=== PATIENT | female | born 1940 | race Caucasian/White ===

== ENCOUNTER 2016-07-23 09:47 | Outpatient (CLI) | payer MEDICARE, OTHER | END 2016-07-23 23:59 | disposition home or self-care (01) | LOC: NM 09:47 | PROVIDERS: ATTEND Family Medicine | DX: E21.1 Secondary hyperparathyroidism, not elsewhere classified (principal) | CPT/HCPCS: 78070; A9500 ==

== ENCOUNTER 2016-10-13 11:31 | Inpatient (IN) | payer MEDICARE, OTHER ==
[~2016-10-13] VITALS: Ht 152.4 cm; Wt 61.2 kg
--- NOTE | 2016-10-13 11:43 | NUR ---
BB SELF FOR WEAKNESS SINCE WEDNESDAY. PLACED ON MONITOR. AWAITING MD ORDER
[2016-10-13 12:38] LABS: BASOPHILS # (AUTO) 0.1 /CMM (0.0-0.2); BASOPHILS % (AUTO) 0.7 % (0.0-2.0); EOSINOPHILS # (AUTO) 0.1 /CMM (0.0-0.7); EOSINOPHILS % (AUTO) 0.8 % (0.0-6.0); HEMATOCRIT 41 % (33-45); HEMOGLOBIN 13.6 g/dL (11.5-14.8); LYMPHOCYTES # (AUTO) 3.5 /CMM (0.8-4.8); LYMPHOCYTES % (AUTO) 44.6 % (20.0-44.0); MEAN CORPUSCULAR HEMOGLOBIN 28 PG (26.0-33.0); MEAN CORPUSCULAR HGB CONC 33 g/dl (31.0-36.0); MEAN CORPUSCULAR VOLUME 85 fL (82-100); MONOCYTES # (AUTO) 0.4 /CMM (0.1-1.30); MONOCYTES % (AUTO) 5.7 % (2.0-12.0); NEUTROPHILS # (AUTO) 3.7 /CMM (1.8-8.9); NEUTROPHILS % (AUTO) 48.2 % (43.0-81.0); PLATELET COUNT (AUTO) 187 /CMM (150-450); RDW COEFFICIENT OF VARIATION 13.5 (11.5-15.0); RED BLOOD CELL COUNT(AUTO) 4.82 MIL/uL (4.0-5.2); WHITE BLOOD COUNT (AUTO) 7.8 K/uL (4.3-11.0)
[2016-10-13 12:48] LABS: INR 1.09 (0.87-1.13); PROTHROMBIN TIME 11.3 SECS (9.5-12.7)
[2016-10-13 12:52] LABS: CALCIUM, SERUM 8.8 mg/dL (8.5-10.1); CARBON DIOXIDE 31 mmol/L (21-32); CHLORIDE 103 mmol/L (98-107); CREATININE 0.6 mg/dL (0.6-1.3); GLUCOSE 96 mg/dL (74-106); POTASSIUM 3.4 mmol/L (3.5-5.1); SODIUM SERUM 141 mmol/L (136-145); UREA NITROGEN, BLOOD 12 mg/dL (7-18)
[2016-10-13 13:00] LABS: TROPONIN I < 0.017 ng/mL (0.00-0.056)
[2016-10-13 13:05] LABS: ALANINE AMINOTRANSFERASE 30 U/L (12-78); ALBUMIN 3.6 g/dL (3.4-5.0); ALKALINE PHOSPHATASE 50 U/L (46-116); ASPARTATE AMINOTRANSFERASE 24 U/L (15-37); B-TYPE NATRIURETIC PEPTIDE 2200 PG/ML (0-125); BILIRUBIN,DIRECT 0.1 mg/dL (0.0-0.2); BILIRUBIN,TOTAL 0.4 mg/dL (0.2-1.0); TOTAL PROTEIN, SERUM 6.8 g/dL (6.4-8.2)
--- NOTE | 2016-10-13 13:15 | NUR ---
CALLED NURSING SUP. FOR TELE BED
--- NOTE | 2016-10-13 13:15 | NUR ---
MONO LEWIS, KAREEM CROWELL OVERAGE SHORTAGE AND DAMAGE CLERK
[2016-10-13] MEDS ORDERED: FUROSEMIDE 20 MG/2 ML VIAL ONE (13:24)
[2016-10-13] MEDS ORDERED: FUROSEMIDE 20 MG/2 ML VIAL IV ONE (13:30)
[2016-10-13] MEDS ORDERED: DABI75CA3 PO (14:00)
[2016-10-13] MEDS ORDERED: ONDANSETRON HCL/PF 4 MG/2 ML VIAL IVP PRN (14:00)
[2016-10-13] MEDS ORDERED: ACETAMINOPHEN 325 MG TABLET PO PRN (14:00)
[2016-10-13] MEDS ORDERED: ROSU20TA PO (14:00)
[2016-10-13] MEDS ORDERED: LOSA50TA21 PO (14:00)
[2016-10-13] MEDS ORDERED: MAG HYDROX/AL HYDROX/SIMETH 30 ML UDC PO PRN (14:00)
[2016-10-13] MEDS ORDERED: LEVO25TA9 PO (14:00)
[2016-10-13] MEDS ORDERED: MAGNESIUM HYDROXIDE 30 ML UDC PO PRN (14:00)
[2016-10-13] MEDS ORDERED: CHOL200026 PO (14:00)
[2016-10-13] MEDS ORDERED: ATEN50TA PO (14:00)
[2016-10-13] MEDS ORDERED: POTASSIUM CHLORIDE 20 MEQ POWDER PACKET PO ONE (14:00)
[2016-10-13] MEDS ORDERED: TEMAZEPAM 15 MG CAPSULE PO PRN (14:00)
--- NOTE | 2016-10-13 14:00 | NUR ---
REPORT GIVEN TO LATIA BERNAL
[2016-10-13] MEDS ORDERED: POTASSIUM CHLORIDE 20 MEQ TAB.PRT.SR PO ONE (14:01)
--- NOTE | 2016-10-13 14:01 | NUR ---
REPORT GIVEN TO DOLORES HAWKINS NEW ONSET CHF. TELEMETRY. ADMITTING MD SERNA AIRCRAFT MOTOR MECHANIC. TRANSFER VIA ACLS PROTOCOL
[2016-10-13 14:30] VITALS: BP 151/73
--- NOTE | 2016-10-13 15:00 | NUR ---
RN NOTES: PT RECEIVED FROM ER IN STABLE CONDITION, ALERT AWAKE OX3. RESPONSIVE TO VERBAL & TACTILE STIMULI. ON ROOM AIR. BREATHING PATTERN REGULAR & UNLABORED DURING INITIAL ASSESSMENT, PT STATES SHE FEEL VERY WEAK & SOB WHILE WALKS. PT IS ABLE TO MAKE NEEDS KNOWN. ON TELE MONITOR CONTROLLED A-FIB. VITAL SIGNS TAKEN & DOCUMENTED. IV SITE INTACT, SALINE LOCK. ABLE TO PROVIDE HISTORY. SAFETY MEASURES OBSERVED. UNIT/ROOM ORIENTATION PROVIDED. ALL NEEDS ATTENDED. CALL LIGHT WITHIN REACH. WILL CONTINUE TO MONITOR.
[2016-10-13] MEDS: CHOLECALCIFEROL 1,000 UNIT TABLET (VIT D3) PO SCH (15:46)
[2016-10-13 16:00] VITALS: BP 105/66
--- NOTE | 2016-10-13 16:14 | NUR ---
RN NOTES: PT SEEN BY KAREEM THOMPSON, DR. HALL & DR. OLIVAS AT BEDSIDE. RECEIVED NEW ORDERS NOTED & CARRIED OUT. WILL CONTINUE TO MONITOR.
[2016-10-13 17:10] LABS: THYROID STIMULATING HORMONE 1.867 uIU/mL (0.358-3.74)
[2016-10-13] MEDS: DABIGATRAN ETEXILATE MESYLATE 75 MG CAPSULE PO SCH (17:51)
[2016-10-13] MEDS: ATENOLOL 50 MG TABLET PO SCH (17:52)
--- NOTE | 2016-10-13 19:21 | NUR ---
RN NOTES: PT REMAINS STABLE DURING SHIFT. REPORT GIVEN TO NIGHT RN AT BEDSIDE TO CONTINUITY OF CARE .
--- NOTE | 2016-10-13 19:30 | NUR ---
LOG BRANDER INITIAL NOTES RECEIVED PATIENT AWAKE A/OX4, ABLE TO MAKE NEEDS KNOWN. DENIES PAIN OR DISCOMFORT. RESPIRATIONS EVEN AND UNLABORED. DENIES SOB. SKIN WARM AND DRY TO TOUCH. ON TELE MONITOR AFIB 76. WITH RAC 20G PATENT AND INTACT. HOB ELEVATED. SIDE RAILS UP AND LOCKED. BED KEPT AT LOWEST POSITION. CALL LIGHT KEPT WITHIN EASY REACH. WILL CONTINUE TO MONITOR.
[2016-10-13 20:00] VITALS: BP 104/63
--- NOTE | 2016-10-13 20:30 | NUR ---
HAND DRILLER NOTES PATIENT STATED SHE TAKES CRESTOR 20MG PO QHS, INFORMED KAREEM, WITH ORDERS TO D/C LIPITOR AND CONT HOME MED CRESTOR.
[2016-10-14] VITALS: BP 123/55
[2016-10-14 04:00] VITALS: BP 127/55
[2016-10-14 07:05] LABS: BASOPHILS % (AUTO) 0.2 % (0.0-2.0); EOSINOPHILS # (AUTO) 0.1 /CMM (0.0-0.7); EOSINOPHILS % (AUTO) 1.3 % (0.0-6.0); HEMATOCRIT 42 % (33-45); HEMOGLOBIN 14.1 g/dL (11.5-14.8); LYMPHOCYTES # (AUTO) 3.9 /CMM (0.8-4.8); LYMPHOCYTES % (AUTO) 51.2 % (20.0-44.0); MEAN CORPUSCULAR HEMOGLOBIN 29 PG (26.0-33.0); MEAN CORPUSCULAR HGB CONC 33 g/dl (31.0-36.0); MEAN CORPUSCULAR VOLUME 86 fL (82-100); MONOCYTES # (AUTO) 0.6 /CMM (0.1-1.30); MONOCYTES % (AUTO) 7.6 % (2.0-12.0); NEUTROPHILS % (AUTO) 39.7 % (43.0-81.0); PLATELET COUNT (AUTO) 199 /CMM (150-450); RDW COEFFICIENT OF VARIATION 14.8 (11.5-15.0); RED BLOOD CELL COUNT(AUTO) 4.91 MIL/uL (4.0-5.2); WHITE BLOOD COUNT (AUTO) 7.6 K/uL (4.3-11.0)
--- NOTE | 2016-10-14 07:08 | NUR ---
RN NOTES RECEIVED PATIENT ON BED, AWAKE A/OX4, RESPIRATION EVEN AND UNLABORED ,NO SOB NOTED , ON TELE A FIB IN 60'S , ABLE TO MAKE NEEDS KNOWN. RAC 20G IV SITE CDI, NPO AT THIS TIME FOR LEXISCAN STRESS TEST , HOB ELEVATED. SIDE RAILS UP x3, CALL LIGHT WITHIN EASY REACH , AND LOCKED. WILL CONTINUE TO MONITOR PT CLOSELY AND NOTIFY MD FOR ANY SIGNIFICANT CHANGES
--- NOTE | 2016-10-14 07:20 | NUR ---
INFORMATION ASSURANCE ENGINEER NOTES PER PATIENT MEDICATIONS WERE TAKE FROM HER WHEN SHE WAS ADMITTED AND GIVEN TO PHARMACY. INFORMED PHARMACY, THEY WILL LOOK FOR THE MEDICATION.
--- NOTE | 2016-10-14 07:22 | NUR ---
CHEMICAL MIXER CLOSING NOTES NO SIGNIFICANT CHANGES OVERNIGHT. INDEPENDENT WITH SELF CARE. DENIES SOB. ALL NEEDS ANTICIPATED AND MET. IV ACCESS PATENT. AFIB CONTROLLED ON MONITOR. NO C/O PAIN OR DISCOMFORT. HOB ELEVATED. SIDE RAILS UP LOCKED. BED KEPT AT LOWEST POSITION. CALL LIGHT KEPT WITHIN EASY REACH. PENDING LEXISCAN TODAY. CONTINUITY OF CARE ENDORSED TO AM NURSE.
[2016-10-14 08:00] VITALS: BP 109/61
[2016-10-14] MEDS ORDERED: REGADENOSON 0.4 MG/5 ML DISP.SYRIN IVP ONE (08:00)
[2016-10-14 08:10] LABS: ALANINE AMINOTRANSFERASE 34 U/L (12-78); ALBUMIN 3.5 g/dL (3.4-5.0); ALKALINE PHOSPHATASE 49 U/L (46-116); ASPARTATE AMINOTRANSFERASE 21 U/L (15-37); BILIRUBIN,TOTAL 0.6 mg/dL (0.2-1.0); CALCIUM, SERUM 9.2 mg/dL (8.5-10.1); CARBON DIOXIDE 30 mmol/L (21-32); CHLORIDE 105 mmol/L (98-107); CREATININE 0.7 mg/dL (0.6-1.3); GLUCOSE 98 mg/dL (74-106); MAGNESIUM 1.9 mg/dL (1.8-2.4); PHOSPHORUS 3.8 mg/dL (2.5-4.9); SODIUM SERUM 142 mmol/L (136-145); TOTAL PROTEIN, SERUM 6.8 g/dL (6.4-8.2); UREA NITROGEN, BLOOD 11 mg/dL (7-18)
[2016-10-14] MEDS: PANTOPRAZOLE 40 MG TABLET.DR PO SCH (08:22)
[2016-10-14] MEDS: LEVOTHYROXINE SODIUM 25 MCG TABLET PO SCH (08:24)
[2016-10-14 08:25] LABS: CHOLESTEROL 211 mg/dL (<200); HDL CHOLESTEROL 52 mg/dL (40-60); LDL 126 mg/dL (0-99); THYROID STIMULATING HORMONE 2.919 uIU/mL (0.358-3.74); TRIGLYCERIDES 116 mg/dL (30-150)
--- NOTE | 2016-10-14 08:36 | NUR ---
telemarketer note PT LEAVING UNIT FOR SCHEDULED STRESS TEST. AM PROTONIX AND SYNTHROID GIVEN VIA RN
[2016-10-14] MEDS ORDERED: CHOLECALCIFEROL 1,000 UNIT TABLET (VIT D3) PO SCH (09:00)
[2016-10-14] MEDS ORDERED: ATORVASTATIN 40 MG TABLET PO SCH (09:00)
[2016-10-14] MEDS: LOSARTAN POTASSIUM 50 MG TABLET PO SCH (09:52)
[2016-10-14] MEDS: CHOLECALCIFEROL 1,000 UNIT TABLET (VIT D3) PO SCH (09:53)
[2016-10-14] MEDS: ATENOLOL 50 MG TABLET PO SCH ×2 (09:54→17:00)
--- NOTE | 2016-10-14 10:00 | NUR ---
CHILD CARE WORKER NOTE PT AMBULATES WITHOUT DISTRESS WALKING O2 SATURATION 94- 95 % DR. HALL NOTIFIED NURSING STAFF WILL CONTINUE TO FOLLOW
[2016-10-14] MEDS: DABIGATRAN ETEXILATE MESYLATE 75 MG CAPSULE PO SCH ×2 (10:08→17:00)
--- NOTE | 2016-10-14 10:34 | NUR ---
MANAGER INTERFACE NOTE PT OFF THE UNIT TAKEN FOR IMAGING VIA [facility] STAFF WILL CONTINUE TO FOLLOW
[2016-10-14 12:20] LABS: IRON, SERUM 94 ug/dl (50-175); TOTAL IRON BINDING CAPACITY 314 ug/dl (250-450)
[2016-10-14] MEDS ORDERED: PEG 3350/NA SULF,BICARB,CL/KCL 4,000 ML BOTTLE PO ONE (14:00)
--- NOTE | 2016-10-14 14:14 | NUR ---
BOOKKEEPING MACHINE MECHANIC NOTE PT GIVEN GOLYTELY PO TO DRINK Q 15 MINS UNTIL COMPLETE. PT WILL BEGIN AT 1415. NURSING STAFF WILL CONTINUE TO MONITOR . NURSING STAFF STILL AWAITING A STOOL SAMPLE ADVISED PATIENT TO NOTIFY NURSING STAFF WHEN NEED TO VOID IS EXPERIENCED
[2016-10-14 16:00] VITALS: BP 97/64
--- NOTE | 2016-10-14 17:49 | NUR ---
FREIGHT TALLIER NOTE NURSE CONTACTED PHARMACY IN [place] TO Pradaxa medication not being in local floor pharmacy pharmacy advised nursing that they while send out the medication as soon as possible. nursing staff will continue to follow
--- NOTE | 2016-10-14 18:18 | NUR ---
BRIDGE BUILDER CLOSING NOTES NO SIGNIFICANT CHANGES THROUGHOUT THE DAY PT SCHEDULED FOR ARTERIAL DOPPLER PER DR. HALL, PT ALSO SCHEDULED FOR COLONOSCOPY IN THE MORNING 10/15/16. NURSING STAFF STILL AWAITING STOOL CULTURE VIA PATIENT. PT IS INDEPENDENT WITH SELF CARE. DENIES SOB. ALL NEEDS ANTICIPATED AND MET. IV ACCESS PATENT. AFIB CONTROLLED ON MONITOR. NO C/O PAIN OR DISCOMFORT. HOB ELEVATED. SIDE RAILS UP LOCKED. BED KEPT AT LOWEST POSITION. CALL LIGHT KEPT WITHIN EASY REACH. NO ACUTE ISSUE NOTE VIA LEXISCAN ON 10/14/16. CONTINUITY OF CARE ENDORSED TO PM NURSE.
--- NOTE | 2016-10-14 19:30 | NUR ---
Pt stable. OOB ad ashish. BM clearing out as expected after GoLytely. No distress noted. Denies pain. Appears comfortable. Call light in reach.
[2016-10-14 20:00] VITALS: BP 139/85
[2016-10-14] MEDS ORDERED: CRESTOR 20 MG PO SCH (22:00)
[2016-10-15 04:00] VITALS: BP 118/61
--- NOTE | 2016-10-15 05:31 | NUR ---
No changes noted. Remains stable. Kept NPO. All needs anticipated and met by staff. Call light in reach.
[2016-10-15 06:44] LABS: BASOPHILS % (AUTO) 0.2 % (0.0-2.0); EOSINOPHILS # (AUTO) 0.1 /CMM (0.0-0.7); EOSINOPHILS % (AUTO) 1.2 % (0.0-6.0); HEMATOCRIT 38 % (33-45); HEMOGLOBIN 12.9 g/dL (11.5-14.8); LYMPHOCYTES # (AUTO) 3.5 /CMM (0.8-4.8); LYMPHOCYTES % (AUTO) 46.4 % (20.0-44.0); MEAN CORPUSCULAR HEMOGLOBIN 29 PG (26.0-33.0); MEAN CORPUSCULAR HGB CONC 34 g/dl (31.0-36.0); MEAN CORPUSCULAR VOLUME 85 fL (82-100); MONOCYTES # (AUTO) 0.6 /CMM (0.1-1.30); MONOCYTES % (AUTO) 7.7 % (2.0-12.0); NEUTROPHILS # (AUTO) 3.3 /CMM (1.8-8.9); NEUTROPHILS % (AUTO) 44.5 % (43.0-81.0); PLATELET COUNT (AUTO) 183 /CMM (150-450); RDW COEFFICIENT OF VARIATION 14.1 (11.5-15.0); RED BLOOD CELL COUNT(AUTO) 4.45 MIL/uL (4.0-5.2); WHITE BLOOD COUNT (AUTO) 7.5 K/uL (4.3-11.0)
--- NOTE | 2016-10-15 07:15 | NUR ---
RN INITIAL NOTES: Rec'd pt awake on bed, not in any form of distress, denies pain/ discomfort, A/O x3-4. Pt on room air, no SOB. Pt is scheduled for colonoscopy at 1330H per Dr. Hercules, consent in, pre-op checklist done. Pt NPO since 2100H last night, reinforcement done re: NPO. As per pt, she passed clear liquid stool last night 9PM. Pt has RFA G20 SL, flushed, patent & intact w/ no signs of infection. Provided comfort & safety measures. Needs attended. Call light placed w/in reach. Will continue to monitor.
[2016-10-15] MEDS: LEVOTHYROXINE SODIUM 25 MCG TABLET PO SCH (07:30)
[2016-10-15] MEDS: PANTOPRAZOLE 40 MG TABLET.DR PO SCH (07:30)
[2016-10-15 08:00] VITALS: BP 129/64
[2016-10-15 08:27] VITALS: BP 129/64
[2016-10-15] MEDS: LOSARTAN POTASSIUM 50 MG TABLET PO SCH ×2 (08:48→15:09)
[2016-10-15] MEDS: ATENOLOL 50 MG TABLET PO SCH ×2 (08:48→17:00)
[2016-10-15] MEDS: DABIGATRAN ETEXILATE MESYLATE 75 MG CAPSULE PO SCH ×2 (08:48→18:19)
[2016-10-15] MEDS: CHOLECALCIFEROL 1,000 UNIT TABLET (VIT D3) PO SCH ×2 (08:48→15:08)
--- NOTE | 2016-10-15 10:00 | NUR ---
RN NOTES: As per pt, she passed small liquid stool.
--- NOTE | 2016-10-15 11:00 | NUR ---
RN NOTES: Rec'd call from Dina (OR) to call Dr. Hercules f/u on the time re: colonoscopy. Left VM to Dr. Hercules regarding this.
--- NOTE | 2016-10-15 13:10 | NUR ---
RN NOTES: Pt sent to OR for colonoscopy procedure via bed.
--- NOTE | 2016-10-15 14:00 | NUR ---
RN NOTES: Pt s/p colonoscopy procedure. As per OR nurse, as per MD order to start pt on regular diet.
--- NOTE | 2016-10-15 15:00 | NUR ---
RN NOTES: BP at 153/88. Anti hypertensive once daily med this AM was given.
[2016-10-15 16:00] VITALS: BP 102/51
[2016-10-15 16:54] VITALS: BP 102/55
[2016-10-15 17:00] VITALS: BP 103/44
--- NOTE | 2016-10-15 18:37 | NUR ---
GAS STATION OPERATOR NOTES: DC instructions and documents given to pt w/ pt verbalization of understanding. All belongings and own medication sent to pt. Belonging list signed by pt. IV line access removed, no sign of infection noted, applied pressure dressing. ID band also removed. No concern or issues at this time. Pt left the facility in stable condition via wheelchair accompanied by daughter and DOLORES Ware.
== END 2016-10-15 18:53 | disposition home or self-care (01) | DRG 880 ==
LOC: ER 11:33 → TELE1 14:13 → MEDSG1 10-14 12:04
PROVIDERS: ADMIT Nurse Practitioner Acute Care; ATTEND Nurse Practitioner Acute Care
PROC: 0DJD8ZZ Inspection of Lower Intestinal Tract, Via Natural or Artificial Opening Endoscopic (ICD-10-PCS; principal; 2016-10-15 13:00)
DX: F41.9 Anxiety disorder, unspecified (principal); D68.59 Other primary thrombophilia; R06.00 Dyspnea, unspecified; E03.9 Hypothyroidism, unspecified; E55.9 Vitamin D deficiency, unspecified; E78.5 Hyperlipidemia, unspecified; E87.6 Hypokalemia; Z80.0 Family history of malignant neoplasm of digestive organs; G47.33 Obstructive sleep apnea (adult) (pediatric); Z79.01 Long term (current) use of anticoagulants; I48.0 Paroxysmal atrial fibrillation; I10 Essential (primary) hypertension; R25.1 Tremor, unspecified; R53.1 Weakness
CPT/HCPCS: 36415; 71010-TC; 80048-TC; 80053-TC; 80061-TC; 80076-TC; 82272-TC; 82306; 83540-TC; 83735-TC; 83880; 84100-TC; 84439-TC; 84443-TC; 84484-TC; 85025-TC; 85378-TC; 85652-TC; 85730-TC; 87081-TC; 93307-TC; 93970-TC; 97001-TC; A4606; A9502; J1940; J2785; Z7610

== ENCOUNTER 2016-10-27 08:18 | Outpatient (CLI) | payer MEDICARE, OTHER ==
[~2016-10-27 08:18] MED LIST: ATEN50TA PO; CHOL200026 PO; DABI75CA3 PO; LEVO25TA9 PO; LOSA50TA21 PO; ROSU20TA PO
== END 2016-10-27 23:59 | disposition home or self-care (01) ==
LOC: MRI 08:18
PROVIDERS: ATTEND Family Medicine
DX: I67.82 Cerebral ischemia (principal); R90.82 White matter disease, unspecified; Q04.8 Other specified congenital malformations of brain; G93.9 Disorder of brain, unspecified; H93.12 Tinnitus, left ear
CPT/HCPCS: 70540; 70551-TC

== ENCOUNTER 2017-02-03 08:31 | Outpatient (CLI) | payer MEDICARE, OTHER | END 2017-02-03 23:59 | disposition home or self-care (01) | LOC: CT 08:31 | PROVIDERS: ATTEND Family Medicine | DX: N85.8 Other specified noninflammatory disorders of uterus (principal); I70.0 Atherosclerosis of aorta; I31.3 Pericardial effusion (noninflammatory); K76.89 Other specified diseases of liver | CPT/HCPCS: 74178; J7050; Q9967 ==

== ENCOUNTER 2017-08-31 10:39 | Outpatient (CLI) | payer MEDICARE, OTHER ==
[2017-08-31 11:46] LABS: INR 1.06 (0.87-1.13)
== END 2017-08-31 23:59 | disposition home or self-care (01) ==
LOC: LAB 10:39
PROVIDERS: ATTEND Family Medicine
DX: Z01.818 Encounter for other preprocedural examination (principal); J98.11 Atelectasis; I70.0 Atherosclerosis of aorta; D23.5 Other benign neoplasm of skin of trunk
CPT/HCPCS: 36415; 71046; 85610-TC; 85730-TC

== ENCOUNTER 2017-09-30 08:16 | Emergency (ER) | payer MEDICARE, OTHER ==
[~2017-09-30] VITALS: Ht 152.4 cm; Wt 61.2 kg
--- NOTE | 2017-09-30 08:16 | NUR ---
dizziness x 3 days, bp this morning was 211/86. PLACED ON MONITOR. AWAITING MD ORDER
--- NOTE | 2017-09-30 08:49 | NUR ---
SPARERIBS TRIMMER AT BEDSIDE
--- NOTE | 2017-09-30 08:51 | NUR ---
LAC#20 IV ACCESS. BLOOD SAMPLE COLLECTED SENT TO LAB
[2017-09-30 09:03] LABS: BASOPHILS % (AUTO) 0.2 % (0.0-2.0); EOSINOPHILS % (AUTO) 0.8 % (0.0-6.0); HEMATOCRIT 40 % (33-45); HEMOGLOBIN 13.5 g/dL (11.5-14.8); LYMPHOCYTES # (AUTO) 2.4 /CMM (0.8-4.8); LYMPHOCYTES % (AUTO) 38.1 % (20.0-44.0); MEAN CORPUSCULAR HGB CONC 34 g/dl (31.0-36.0); MEAN CORPUSCULAR VOLUME 85 fL (82-100); MONOCYTES # (AUTO) 0.5 /CMM (0.1-1.30); MONOCYTES % (AUTO) 7.8 % (2.0-12.0); NEUTROPHILS # (AUTO) 3.4 /CMM (1.8-8.9); NEUTROPHILS % (AUTO) 53.1 % (43.0-81.0); PLATELET COUNT (AUTO) 217 /CMM (150-450); RDW COEFFICIENT OF VARIATION 13.2 (11.5-15.0); RED BLOOD CELL COUNT(AUTO) 4.65 MIL/uL (4.0-5.2); WHITE BLOOD COUNT (AUTO) 6.4 K/uL (4.3-11.0)
[2017-09-30 09:07] LABS: CALCIUM, SERUM 9.6 mg/dL (8.5-10.1); CARBON DIOXIDE 32 mmol/L (21-32); CHLORIDE 102 mmol/L (98-107); CREATININE 0.7 mg/dL (0.6-1.3); GLUCOSE 109 mg/dL (74-106); POTASSIUM 4.3 mmol/L (3.5-5.1); SODIUM SERUM 137 mmol/L (136-145); UREA NITROGEN, BLOOD 10 mg/dL (7-18)
[2017-09-30 09:10] LABS: INR 1.01 (0.87-1.13)
[2017-09-30 09:16] LABS: TROPONIN I < 0.017 ng/mL (0.00-0.056)
[2017-09-30] MEDS ORDERED: LOSARTAN POTASSIUM 25 MG TABLET ONE (09:26)
[2017-09-30] MEDS ORDERED: LOSARTAN POTASSIUM 25 MG TABLET PO ONE (09:30)
[2017-09-30 10:36] VITALS: BP 128/62
--- NOTE | 2017-09-30 10:36 | NUR ---
Patient discharged to home in stable condition. Written and verbal after care instructions given. Patient verbalizes understanding of instruction.
--- NOTE | 2017-09-30 10:36 | NUR ---
IV removed. Catheter intact and site benign. Pressure and 4x4 applied to site. No bleeding noted.
== END 2017-09-30 10:37 | disposition home or self-care (01) ==
LOC: ER 08:20
DX: I10 Essential (primary) hypertension (principal); E78.5 Hyperlipidemia, unspecified; I48.91 Unspecified atrial fibrillation; Z79.01 Long term (current) use of anticoagulants; Z88.0 Allergy status to penicillin; Z88.2 Allergy status to sulfonamides; Z85.43 Personal history of malignant neoplasm of ovary; Z60.2 Problems related to living alone
CPT/HCPCS: 36415; 71045-TC; 80048-TC; 84484-TC; 85025-TC; 85730-TC; A4606; Z7610

== ENCOUNTER 2017-10-13 13:39 | Outpatient (CLI) | payer MEDICARE, OTHER | END 2017-10-13 23:59 | disposition home or self-care (01) | LOC: RAD 13:39 | PROVIDERS: ATTEND Family Medicine | DX: R42 Dizziness and giddiness (principal) | CPT/HCPCS: 70450-TC ==

== ENCOUNTER 2018-04-12 11:16 | Emergency (ER) | payer MEDICARE, OTHER ==
[~2018-04-12] VITALS: Ht 154.9 cm; Wt 63.0 kg
[~2018-04-12 11:16] MED LIST changes: -LOSA50TA21 PO; +LOSA50TA39 PO
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
[2018-04-12] MEDS ORDERED: ACETAMINOPHEN ES 500 MG TABLET ONE (11:57)
[2018-04-12] MEDS ORDERED: ACETAMINOPHEN ES 500 MG TABLET PO ONE (12:00)
[2018-04-12] MEDS ORDERED: IV NS 0.9% 1,000 ML BAG IV ONE (12:00)
[2018-04-12 12:01] LABS: BASOPHILS % (AUTO) 0.4 % (0.0-2.0); EOSINOPHILS % (AUTO) 0.5 % (0.0-6.0); HEMATOCRIT 42 % (33-45); HEMOGLOBIN 13.8 g/dL (11.5-14.8); LYMPHOCYTES # (AUTO) 4.3 /CMM (0.8-4.8); LYMPHOCYTES % (AUTO) 32.6 % (20.0-44.0); MEAN CORPUSCULAR HGB CONC 33 g/dl (31.0-36.0); MEAN CORPUSCULAR VOLUME 87 fL (82-100); MONOCYTES # (AUTO) 0.6 /CMM (0.1-1.30); MONOCYTES % (AUTO) 4.9 % (2.0-12.0); NEUTROPHILS # (AUTO) 8.2 /CMM (1.8-8.9); NEUTROPHILS % (AUTO) 61.6 % (43.0-81.0); PLATELET COUNT (AUTO) 206 /CMM (150-450); RED BLOOD CELL COUNT(AUTO) 4.81 MIL/uL (4.0-5.2); WHITE BLOOD COUNT (AUTO) 13.3 K/uL (4.3-11.0)
[2018-04-12 12:14] LABS: CALCIUM, SERUM 9.3 mg/dL (8.5-10.1); CARBON DIOXIDE 27 mmol/L (21-32); CHLORIDE 101 mmol/L (98-107); CREATININE 0.8 mg/dL (0.6-1.3); GLUCOSE 141 mg/dL (74-106); POTASSIUM 3.2 mmol/L (3.5-5.1); SODIUM SERUM 140 mmol/L (136-145); UREA NITROGEN, BLOOD 17 mg/dL (7-18)
[2018-04-12 12:19] LABS: ALANINE AMINOTRANSFERASE 61 U/L (12-78); ALBUMIN 3.5 g/dL (3.4-5.0); ALKALINE PHOSPHATASE 63 U/L (46-116); ASPARTATE AMINOTRANSFERASE 62 U/L (15-37); BILIRUBIN,DIRECT 0.1 mg/dL (0.0-0.2); BILIRUBIN,TOTAL 0.4 mg/dL (0.2-1.0); TOTAL PROTEIN, SERUM 6.7 g/dL (6.4-8.2)
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
[2018-04-12] MEDS ORDERED: IOHEXOL-300 100 ML VIAL IV ONE (12:47)
[2018-04-12] MEDS ORDERED: CT SWABBABLE VALVE TRANS SET 1 EA INFUS.SET MC ONE (12:47)
[2018-04-12] MEDS ORDERED: IV NS 0.9% 250 ML IV ONE (12:47)
--- NOTE | 2018-04-12 13:11 | NUR ---
PT IN RADIOLOGY. FAMILY REMAINS AT BEDSIDE.
--- NOTE | 2018-04-12 14:16 | NUR ---
FIRST LITER IVF FINISHED. SECOND LITER PLACED AND RUNNING AT [facility].
[2018-04-12 14:28] VITALS: BP 104/73
[2018-04-12] MEDS ORDERED: PROTHROMBIN COMPLEX CONCENTR 500 UNIT VIAL IV ONE (14:30)
--- NOTE | 2018-04-12 14:35 | NUR ---
PT TRANSFERRED TO [facility] FOR TRAUMA.
== END 2018-04-12 14:38 | disposition short-term general hospital (02) ==
LOC: ER 11:19
DX: S36.892A Contusion of other intra-abdominal organs, initial encounter (principal); S60.211A Contusion of right wrist, initial encounter; S00.81XA Abrasion of other part of head, initial encounter; I48.91 Unspecified atrial fibrillation; I10 Essential (primary) hypertension; E78.5 Hyperlipidemia, unspecified; Z98.890 Other specified postprocedural states; Z88.0 Allergy status to penicillin; Z88.2 Allergy status to sulfonamides; Z60.2 Problems related to living alone; Z79.899 Other long term (current) drug therapy; V49.49XA Driver injured in collision with other motor vehicles in traffic accident, initial encounter; Y93.89 Activity, other specified; Y92.413 State road as the place of occurrence of the external cause; Y99.8 Other external cause status
CPT/HCPCS: 36415; 70450-TC; 71260-TC; 72125-TC; 73110; 73564-TC; 80048-TC; 80076-TC; 84484-TC; 85025-TC; 85730-TC; A4606; C9132; J7030; J7050; Q9967; Z7610

== ENCOUNTER 2018-07-08 04:07 | Inpatient (IN) | payer MEDICARE, OTHER ==
[~2018-07-08] VITALS: Ht 152.4 cm; Wt 59.0 kg
[~2018-07-08 04:07] MED LIST changes: -ROSU20TA PO; +ROSU20TA2 PO
--- NOTE | 2018-07-08 04:15 | NUR ---
Pt came to emergency dept. complaining of palpitations that started last night at 1030pm. Pt states that they went away and came back and that is why she came to the emergency dept. Pt is AXO4. Respirations even and unlabored. Pt put on the monitor and pulse ox. Pending eval from ER .
--- NOTE | 2018-07-08 04:25 | NUR ---
EKG at bedside.
--- NOTE | 2018-07-08 04:30 | NUR ---
JAIME MIGUEL AT bedside.
[2018-07-08 04:52] LABS: BASOPHILS % (AUTO) 0.5 % (0.0-2.0); EOSINOPHILS % (AUTO) 0.7 % (0.0-6.0); HEMATOCRIT 43 % (33-45); HEMOGLOBIN 14.7 g/dL (11.5-14.8); LYMPHOCYTES # (AUTO) 2.9 /CMM (0.8-4.8); LYMPHOCYTES % (AUTO) 44.5 % (20.0-44.0); MEAN CORPUSCULAR HGB CONC 34 g/dl (31.0-36.0); MEAN CORPUSCULAR VOLUME 88 fL (82-100); MONOCYTES # (AUTO) 0.4 /CMM (0.1-1.30); MONOCYTES % (AUTO) 6.5 % (2.0-12.0); NEUTROPHILS # (AUTO) 3.2 /CMM (1.8-8.9); NEUTROPHILS % (AUTO) 47.8 % (43.0-81.0); PLATELET COUNT (AUTO) 191 /CMM (150-450); RED BLOOD CELL COUNT(AUTO) 4.93 MIL/uL (4.0-5.2); WHITE BLOOD COUNT (AUTO) 6.6 K/uL (4.3-11.0)
--- NOTE | 2018-07-08 04:53 | NUR ---
Xray at bedside.
[2018-07-08 05:00] LABS: CALCIUM, SERUM 9.4 mg/dL (8.5-10.1); CARBON DIOXIDE 31 mmol/L (21-32); CHLORIDE 106 mmol/L (98-107); CREATININE 0.7 mg/dL (0.6-1.3); GLUCOSE 110 mg/dL (74-106); POTASSIUM 3.8 mmol/L (3.5-5.1); SODIUM SERUM 144 mmol/L (136-145); UREA NITROGEN, BLOOD 13 mg/dL (7-18)
--- NOTE | 2018-07-08 05:38 | NUR ---
Report given to Khoi June RN for HAYES.
[2018-07-08] MEDS ORDERED: DABI150C PO (05:52)
[2018-07-08] MEDS ORDERED: LEVO25TA7 PO (05:52)
[2018-07-08] MEDS ORDERED: LOSA1TAB36 PO (05:52)
[2018-07-08] MEDS ORDERED: EZET10TA14 PO (05:52)
[2018-07-08] MEDS ORDERED: ATEN50TA PO (05:52)
[2018-07-08] MEDS ORDERED: ROSU20TA2 PO (05:52)
[2018-07-08] MEDS ORDERED: ACETAMINOPHEN 325 MG TABLET PO PRN (06:00)
[2018-07-08] MEDS ORDERED: ONDANSETRON HCL/PF 4 MG/2 ML VIAL IVP PRN (06:00)
[2018-07-08] MEDS ORDERED: MORPHINE SULFATE INJ 2 MG/ML DISP.SYRIN IV PRN (06:00)
[2018-07-08] MEDS ORDERED: MAGNESIUM HYDROXIDE 30 ML UDC PO PRN (06:00)
[2018-07-08] MEDS ORDERED: TEMAZEPAM 7.5 MG CAPSULE PO PRN (06:00)
[2018-07-08] MEDS ORDERED: MAG HYDROX/AL HYDROX/SIMETH 30 ML UDC PO PRN (06:00)
--- NOTE | 2018-07-08 06:05 | NUR ---
RN Notes Admitted patient from ER via gurney, awake, alert and oriented x4. Patient denies pain, nausea and vomiting. Kept patient on NPO until seen by cardio. Vital signs stable. Attached to telemonitor which reads NSR with heart rate at 66. Plan of care and fall precaution discussed with the patient and verbalized understanding. Skin assessment done, skin clear and intact. Kept comfortable and attended. Will endorse to morning RN to complete admission and for continuity of care.
[2018-07-08 06:30] VITALS: BP 155/75
--- NOTE | 2018-07-08 07:15 | NUR ---
TELE/RN NOTE THE PATIENT IS RECEIVED IN BED AWAKE. ALERT AND ORIENTED X4. PATIENT STATED THAT SHE IS HARD OF HEARING ON LEFT EAR. THE PATIENT IS ON EXTERNAL TELE BOX AND THE READING IS SR 60. DENIES PAIN. IN ROOM AIR AND DENIES SOB. RESPIRATION REGULAR AND UNLABORED. THE PATIENT IN NO APPARENT DISTRESS. RAC G 20 PATENT AND SALINE LOCKED. BED LOW AND LOCKED. SIDE RAILS UP X2. CALL LIGHT WITHIN REACH. WILL CONTINUE TO MONITOR.
[2018-07-08 07:30] VITALS: BP 128/72
[2018-07-08] MEDS: PANTOPRAZOLE 40 MG TABLET.DR PO SCH (07:30)
[2018-07-08 08:00] VITALS: BP 128/72
[2018-07-08] MEDS ORDERED: LOSARTAN/HCTZ 50-12.5MG/ 1 EA TABLET PO SCH (09:00)
[2018-07-08] MEDS: LOSARTAN/HCTZ 50-12.5MG/ 1 EA TABLET PO SCH (09:00)
[2018-07-08] MEDS: LEVOTHYROXINE SODIUM 25 MCG TABLET PO SCH (09:06)
[2018-07-08 09:49] LABS: THYROID STIMULATING HORMONE 2.237 uIU/mL (0.358-3.74)
[2018-07-08] MEDS: ATENOLOL 50 MG TABLET PO SCH ×2 (10:30→21:03)
[2018-07-08] MEDS: DABIGATRAN ETEXILATE MESYLATE 75 MG CAPSULE PO SCH ×2 (11:30→16:47)
--- NOTE | 2018-07-08 13:01 | NUR ---
MS/RN NOTE STILL WAITING FOR PRADAXA TO BE DELIVERED FROM PHARMACY. FOLLOW UP CALL WAS MADE. WILL CONTINUE TO FOLLOW UP.
[2018-07-08 16:00] VITALS: BP 130/71
--- NOTE | 2018-07-08 16:27 | NUR ---
MS/RN NOTE PARDAXA DUE AT 1130 NOT ADMINISTERED DUE TO PHARMACY LATE DELIVERY.
--- NOTE | 2018-07-08 18:04 | NUR ---
MS/RN NOTE THE PATIENT ALERT AND ORIENTED X4. IN ROOM AIR AND SATURATION IS AT 97%. DENIES SOB. DENIES PAIN. THE PATIENT IN NO APPARENT DISTRESS. RAC G 20 PATENT AND SALINE LOCKED. THE PATIENT IS ABLE TO AMBULATE WITH STAND BY ASSIST. GOOD AND GENTLE SKIN CARE RENDERED. KEPT CLEAN, DRY AND COMFORTABLE. ALL NEEDS ATTENDED AND ANTICIPATED. BED LOW AND LOCKED. SIDE RAILS UP X2. CALL LIGHT WITHIN REACH. WILL ENDORSE TO WATCH DIAL MAKER.
--- NOTE | 2018-07-08 19:15 | NUR ---
MS RN NOTE RECEIVED PT IN STABLE CONDITION A&O X4, CURRENTLY RESTING IN BED EASILY AROUSED WHEN NAME IS CALLED. NO SIGNS OF SOB/DISTRESS. NO C/O PAIN. ALL CURRENT NEEDS MET. SAFETY MEASURES IN PLACE: BED LOW, LOCKED, UPPER RAILS UP, AND CALL LIGHT WITHIN REACH. WILL CONT TO MONITOR.
[2018-07-08 20:00] VITALS: BP 121/70
[2018-07-08] MEDS ORDERED: EZETIMIBE 10 MG TABLET PO SCH (22:00)
--- NOTE | 2018-07-09 06:27 | NUR ---
MS RN NOTE PT IN STABLE CONDITION A&O X4, CURRENTLY RESTING IN BED EASILY AROUSED WHEN NAME IS CALLED. NO SIGNS OF SOB/DISTRESS. NO C/O PAIN. ALL CURRENT NEEDS MET. SAFETY MEASURES IN PLACE: BED LOW, LOCKED, UPPER RAILS UP, AND CALL LIGHT WITHIN REACH. WILL CONT TO MONITOR AND ENDORSE TO NEXT SHIFT FOR HAYES.
[2018-07-09 06:28] LABS: BASOPHILS % (AUTO) 0.4 % (0.0-2.0); CARBON DIOXIDE 30 mmol/L (21-32); CHLORIDE 107 mmol/L (98-107); CREATININE 0.6 mg/dL (0.6-1.3); GLUCOSE 92 mg/dL (74-106); HEMATOCRIT 41 % (33-45); HEMOGLOBIN 14.2 g/dL (11.5-14.8); LYMPHOCYTES # (AUTO) 2.8 /CMM (0.8-4.8); LYMPHOCYTES % (AUTO) 48.8 % (20.0-44.0); MAGNESIUM 2.3 mg/dL (1.8-2.4); MEAN CORPUSCULAR HGB CONC 35 g/dl (31.0-36.0); MEAN CORPUSCULAR VOLUME 87 fL (82-100); MONOCYTES # (AUTO) 0.4 /CMM (0.1-1.30); MONOCYTES % (AUTO) 6.5 % (2.0-12.0); NEUTROPHILS # (AUTO) 2.5 /CMM (1.8-8.9); NEUTROPHILS % (AUTO) 43.3 % (43.0-81.0); PHOSPHORUS 4.4 mg/dL (2.5-4.9); PLATELET COUNT (AUTO) 184 /CMM (150-450); POTASSIUM 4.1 mmol/L (3.5-5.1); SODIUM SERUM 145 mmol/L (136-145); UREA NITROGEN, BLOOD 13 mg/dL (7-18); WHITE BLOOD COUNT (AUTO) 5.8 K/uL (4.3-11.0)
[2018-07-09] MEDS: PANTOPRAZOLE 40 MG TABLET.DR PO SCH (07:30)
--- NOTE | 2018-07-09 07:32 | NUR ---
MS RN OPENING NOTES PATIENT IS A/OX4, IN NO APPARENT DISTRESS. BED RAILS UP X2. BED IS LOCKED AND LOWERED. CALL LIGHT WITHIN REACH. IV INTACT AND PATENT. WILL CONTINUE TO MONITOR.
[2018-07-09] MEDS: LEVOTHYROXINE SODIUM 25 MCG TABLET PO SCH (07:40)
[2018-07-09 08:00] VITALS: BP 137/72
[2018-07-09 08:26] LABS: CHOLESTEROL 182 mg/dL (<200); HDL CHOLESTEROL 54 mg/dL (40-60); LDL 104 mg/dL (0-99); TRIGLYCERIDES 80 mg/dL (30-150)
[2018-07-09] MEDS: ATENOLOL 50 MG TABLET PO SCH (08:42)
[2018-07-09 09:00] VITALS: BP 137/72
[2018-07-09] MEDS ORDERED: ATORVASTATIN 40 MG TABLET PO SCH (09:00)
[2018-07-09] MEDS: LOSARTAN/HCTZ 50-12.5MG/ 1 EA TABLET PO SCH (09:00)
[2018-07-09] MEDS: DABIGATRAN ETEXILATE MESYLATE 75 MG CAPSULE PO SCH (09:21)
[2018-07-09] MEDS ORDERED: ATOR40TA PO (09:26)
[2018-07-09] MEDS ORDERED: LOSA1TAB3 PO (09:26)
--- NOTE | 2018-07-09 09:40 | NUR ---
MS SMALL OFFSET PRINTER NOTES DISCHARGED PATIENT IN STABLE CONDITION. IN NO APPARENT DISTRESS. EXITCARE WAS SIGNED AND GIVEN TO THE PATIENT. PRESCRIPTIONS WERE GIVEN TO THE PATIENT. FOLLOW UP APPOINTMENT WITH DR OLIVAS WAS PROVIDED TO THE PATIENT FOR 1 WEEK POST DISCHARGE. IV LINE AND ID BAND WERE REMOVED. BELONGINGS WERE CHECKED AND GIVEN TO THE PATIENT. ALL NEEDS WERE MET. PATIENT WAS ESCORTED OUT OF THE FACILITY BY STEFFI BERNAL AND PATIENTS DAUGHTER. PATIENTS DAUGHTER WILL DRIVE PATIENT HOME SAFELY. DISCHARGE PICTURES WERE TAKEN AND PLACED IN CHART.
== END 2018-07-09 09:30 | disposition home or self-care (01) | DRG 309 ==
LOC: ER 04:08 → TELE 05:35 → MED 10:17
PROVIDERS: ADMIT Registered Nurse; ATTEND Registered Nurse
DX: I48.0 Paroxysmal atrial fibrillation (principal); I50.32 Chronic diastolic (congestive) heart failure; R00.2 Palpitations; E78.5 Hyperlipidemia, unspecified; E03.9 Hypothyroidism, unspecified; I11.0 Hypertensive heart disease with heart failure; I50.9 Heart failure, unspecified
CPT/HCPCS: 36415; 71045-TC; 80048-TC; 80061-TC; 83735-TC; 84100-TC; 84439-TC; 84443-TC; 84484-TC; 85025-TC; 85730-TC; 87081-TC; 93307-TC; G0378

== ENCOUNTER 2018-08-30 22:52 | Emergency (ER) | payer MEDICARE, OTHER ==
[~2018-08-30] VITALS: Ht 152.4 cm; Wt 57.2 kg
[~2018-08-30 22:52] MED LIST changes: +ATOR40TA PO; +DABI150C PO; -DABI75CA3 PO; +EZET10TA14 PO; +LOSA1TAB3 PO; +LOSA1TAB36 PO; -LOSA50TA39 PO
--- NOTE | 2018-08-30 23:09 | NUR ---
PT BIB HER DAUGHTER WITH A C/O HIGH BP. PT IS ALSO C/O A HEADACHE. PT HAS BEEN SEEING A NEUROLOGIST FOR THE TREMORS. PT TOOK HER LOSARTAN MATERIALS ASSOCIATE. PT'S SBP IS NOW IN THE 160'S. PT'S DAUGHTER IS AT THE BEDSIDE. PT IS AA&O X 4. RESP EVEN AND UNLABORED.
[2018-08-30] MEDS ORDERED: METOCLOPRAMIDE HCL 10 MG/2 ML VIAL IV ONE (23:30)
[2018-08-30 23:47] LABS: BASOPHILS % (AUTO) 0.4 % (0.0-2.0); EOSINOPHILS % (AUTO) 1.6 % (0.0-6.0); HEMATOCRIT 39 % (33-45); HEMOGLOBIN 13.4 g/dL (11.5-14.8); LYMPHOCYTES # (AUTO) 3.1 /CMM (0.8-4.8); MEAN CORPUSCULAR HGB CONC 35 g/dl (31.0-36.0); MEAN CORPUSCULAR VOLUME 87 fL (82-100); MONOCYTES # (AUTO) 0.6 /CMM (0.1-1.30); NEUTROPHILS # (AUTO) 3.2 /CMM (1.8-8.9); PLATELET COUNT (AUTO) 187 /CMM (150-450); RED BLOOD CELL COUNT(AUTO) 4.46 MIL/uL (4.0-5.2)
--- NOTE | 2018-08-30 23:50 | NUR ---
PT REFUSED REGLAN.
[2018-08-30 23:55] LABS: CALCIUM, SERUM 8.8 mg/dL (8.5-10.1); CARBON DIOXIDE 30 mmol/L (21-32); CHLORIDE 104 mmol/L (98-107); CREATININE 0.9 mg/dL (0.6-1.3); GLUCOSE 111 mg/dL (74-106); POTASSIUM 3.5 mmol/L (3.5-5.1); SODIUM SERUM 139 mmol/L (136-145); UREA NITROGEN, BLOOD 20 mg/dL (7-18)
--- NOTE | 2018-08-31 00:05 | NUR ---
PT LEFT FOR CT VIA RNEY
[2018-08-31 00:08] LABS: B-TYPE NATRIURETIC PEPTIDE 194 PG/ML (0-125)
[2018-08-31 00:12] LABS: THYROID STIMULATING HORMONE 4.998 uIU/mL (0.358-3.74)
--- NOTE | 2018-08-31 00:18 | NUR ---
PT RETURNED FROM CT AND WAS RECONNECTED TO THE MONITOR AND CONTINUOUS PULSE OX.
[2018-08-31 01:34] VITALS: BP 141/73
== END 2018-08-31 01:35 | disposition home or self-care (01) ==
LOC: ER 22:55
DX: I10 Essential (primary) hypertension (principal); I48.91 Unspecified atrial fibrillation; E78.5 Hyperlipidemia, unspecified; R51 Headache; Z60.2 Problems related to living alone; Z88.0 Allergy status to penicillin; Z88.2 Allergy status to sulfonamides; Z79.899 Other long term (current) drug therapy
CPT/HCPCS: 36415; 70450-TC; 71045-TC; 80048-TC; 82550-TC; 83880; 84439-TC; 84443-TC; 84484-TC; 85025-TC; 85730-TC

== ENCOUNTER 2018-10-22 09:17 | Inpatient (IN) | payer MEDICARE, OTHER ==
[~2018-10-22] VITALS: Ht 152.4 cm; Wt 56.2 kg
--- NOTE | 2018-10-22 09:51 | NUR ---
PT BIBSELF FOR LIGHT HEADEDNESS X2DAYS; PT AAOX4, PT AMBULATORY TO BED 1, NAD NOTED, VSS, PENDING MD MONTGOMERY
[2018-10-22] MEDS ORDERED: IV NS 0.9% 500 ML BAG IV ONE (10:00)
[2018-10-22 10:10] LABS: BASOPHILS % (AUTO) 0.2 % (0.0-2.0); EOSINOPHILS % (AUTO) 0.5 % (0.0-6.0); HEMATOCRIT 45 % (33-45); HEMOGLOBIN 14.9 g/dL (11.5-14.8); LYMPHOCYTES # (AUTO) 1.9 /CMM (0.8-4.8); LYMPHOCYTES % (AUTO) 25.3 % (20.0-44.0); MEAN CORPUSCULAR HGB CONC 33 g/dl (31.0-36.0); MEAN CORPUSCULAR VOLUME 89 fL (82-100); MONOCYTES # (AUTO) 0.5 /CMM (0.1-1.30); NEUTROPHILS # (AUTO) 4.9 /CMM (1.8-8.9); PLATELET COUNT (AUTO) 209 /CMM (150-450); RED BLOOD CELL COUNT(AUTO) 5.01 MIL/uL (4.0-5.2); WHITE BLOOD COUNT (AUTO) 7.4 K/uL (4.3-11.0)
[2018-10-22 10:19] LABS: CALCIUM, SERUM 9.1 mg/dL (8.5-10.1); CARBON DIOXIDE 29 mmol/L (21-32); CHLORIDE 102 mmol/L (98-107); CREATININE 0.6 mg/dL (0.6-1.3); GLUCOSE 102 mg/dL (74-106); POTASSIUM 3.7 mmol/L (3.5-5.1); SODIUM SERUM 138 mmol/L (136-145); UREA NITROGEN, BLOOD 12 mg/dL (7-18)
--- NOTE | 2018-10-22 11:32 | NUR ---
EPIC CERNER ANALYST DOCTOR PAGED (INDRA PHOENIX)
--- NOTE | 2018-10-22 11:34 | NUR ---
CALLED NURSING SUP FOR TELE BED
--- NOTE | 2018-10-22 12:37 | NUR ---
RECIEVED BED 331-2
--- NOTE | 2018-10-22 13:00 | NUR ---
NURSE NOT AVAILABLE FOR REPORT. WILL CALL BACK.
--- NOTE | 2018-10-22 13:27 | NUR ---
REPORT GIVEN TO WESLEY BERNAL FOR HAYES PT WILL BE TRANSPORTED TO 3RD FLOOR VIA ACLS PROTOCOL
--- NOTE | 2018-10-22 13:40 | NUR ---
RN SURGICAL NOTES RECEIVED PT FROM E.R. STAFF VIA [facility], PT IS AWAKE, ALERT AND ORIENTED, ABLE TO TRANSFER FROM [facility] TO BED INDEPENDENTLY, WITH STEADY GAIT, ASSISTED TO BED, MADE COMFORTABLE, ROOM SET UP ORIENTATION PROVIDED TO PT, VERBALIZED UNDERSTANDING, ON TELE MONITORING, NSR ON THE MONITOR, NO COMPLAINT OF PAIN AT THIS TIME, STATED SHE STILL FEELS SLIGHTLY LIGHTHEADED, CALL LIGHT PLACED WITHIN REACH, AWAITING MD ADMITTING ORDERS.
[2018-10-22 14:00] VITALS: BP 126/59
[2018-10-22 14:10] VITALS: BP 126/69
[2018-10-22] MEDS ORDERED: ZOLPIDEM TARTRATE 5 MG TABLET PO PRN (15:00)
[2018-10-22] MEDS ORDERED: Z GUARD REMEDY 2 OZ OINT TP PRN (15:00)
[2018-10-22] MEDS ORDERED: HYDROCODONE/APAP 5/325MG 1 EACH TABLET PO PRN (15:00)
[2018-10-22] MEDS ORDERED: ONDANSETRON HCL/PF 4 MG/2 ML VIAL IVP PRN (15:00)
[2018-10-22] MEDS ORDERED: ACETAMINOPHEN 325 MG TABLET PO PRN (15:00)
[2018-10-22] MEDS ORDERED: MAG HYDROX/AL HYDROX/SIMETH 30 ML UDC PO PRN (15:00)
[2018-10-22] MEDS ORDERED: MAGNESIUM HYDROXIDE 30 ML UDC PO PRN (15:00)
[2018-10-22 16:00] VITALS: BP 127/59
[2018-10-22 16:15] VITALS: BP_SYST 127; BP_SYST 148; BP_SYST 157; BP_DIAS 69; BP_DIAS 74; BP_DIAS 81
--- NOTE | 2018-10-22 16:23 | NUR ---
DERRICK HAND NOTES PT IN BED, NO COMPLAINT AT THIS TIME, SEEN BY DR. PHOENIX AND DR. OLIVAS, PLAN OF CARE DISCUSSED WITH PT, VERBALIZED UNDERSTANDING, DAUGHTER AT BEDSIDE.
[2018-10-22 16:45] LABS: THYROID STIMULATING HORMONE 1.613 uIU/mL (0.358-3.74)
[2018-10-22] MEDS ORDERED: DABIGATRAN ETEXILATE MESYLATE 75 MG CAPSULE PO ONE (17:00)
--- NOTE | 2018-10-22 18:08 | NUR ---
WOOD BOAT BUILDER SUPERVISOR NOTES PT IN BED, AWAKE, ALERT AND ORIENTED, NO COMPLAINT OF PAIN, NOT IN DISTRESS, CALL LIGHT WITHIN REACH, VISITORS AT BEDSIDE, ATE DINNER, WITH GOOD APPETITE, ALL NEEDS ATTENDED.
[2018-10-22] MEDS: IV NS 0.9% 1,000 ML IV PRN (19:03)
--- NOTE | 2018-10-22 19:20 | NUR ---
911 DISPATCHER OPENING NOTES Received patient sitting up in bed, alert, oriented x 4, able to make needs known. Breathing even and unlabored. Not in any distress, on room air. Peripheral IV infusing at 125mL/hr. Tele monitor in place- sinus rhythm 68. No complaints at this time. Safety measures in place; call light within easy reach. Bed in low, locked position. Will continue to monitor accordingly
[2018-10-22 20:00] VITALS: BP_SYST 147; BP_SYST 94; BP_DIAS 43; BP_DIAS 65
[2018-10-23] VITALS: BP 122/64
[2018-10-23] MEDS: IV NS 0.9% 1,000 ML IV PRN (03:05)
[2018-10-23 04:00] VITALS: BP 145/71
[2018-10-23 06:52] LABS: BASOPHILS % (AUTO) 0.2 % (0.0-2.0); EOSINOPHILS % (AUTO) 1.2 % (0.0-6.0); HEMATOCRIT 37 % (33-45); HEMOGLOBIN 12.6 g/dL (11.5-14.8); LYMPHOCYTES # (AUTO) 2.2 /CMM (0.8-4.8); MEAN CORPUSCULAR HGB CONC 34 g/dl (31.0-36.0); MEAN CORPUSCULAR VOLUME 88 fL (82-100); MONOCYTES # (AUTO) 0.4 /CMM (0.1-1.30); MONOCYTES % (AUTO) 7.3 % (2.0-12.0); NEUTROPHILS # (AUTO) 2.5 /CMM (1.8-8.9); NEUTROPHILS % (AUTO) 48.3 % (43.0-81.0); PLATELET COUNT (AUTO) 166 /CMM (150-450); RED BLOOD CELL COUNT(AUTO) 4.23 MIL/uL (4.0-5.2); WHITE BLOOD COUNT (AUTO) 5.1 K/uL (4.3-11.0)
--- NOTE | 2018-10-23 06:52 | NUR ---
HEAD STRENGTH AND CONDITIONING COACH CLOSING NOTES Patient in bed, alert, oriented x 4. Breathing even and unlabored. Not in any distress, on room air. Peripheral IV infusing at 125mL/hr. Tele monitor in place- sinus rhythm 66. No acute changes overnight. Safety measures in place; call puente within reach, bed in low, locked position. Will endorse HAYES to oncoming RN
[2018-10-23 07:14] LABS: CHOLESTEROL 222 mg/dL (<200); HDL CHOLESTEROL 49 mg/dL (40-60); LDL 144 mg/dL (0-99); THYROID STIMULATING HORMONE 2.246 uIU/mL (0.358-3.74); TRIGLYCERIDES 90 mg/dL (30-150)
--- NOTE | 2018-10-23 07:16 | NUR ---
TELE/RN OPENING NOTE THE PATIENT IS RECEIVED IN BED. VERBALLY RESPONSIVE. ALERT AND ORIENTED X4. IN ROOM AIR AND DENIES SOB. RESPIRATION REGULAR AND UNLABORED. DENIES PAIN. THE PATIENT DENIES HAVING DIZZINESS/SYNCOPE. RAC G 20 PATENT AND NORMAL SALINE INFUSING AT 125ML/HR AND NO S/S INFILTRATION NOTED. BED LOW AND LOCKED. SIDE RAILS UP X3. CALL LIGHT WITHIN REACH. WILL CONTINUE TO MONITOR. Addendum: 10/23/18 at 0813 by JANNET ALDRICH RN EXTERNAL TELE BOX READING IS SR 65.
[2018-10-23 07:17] LABS: B-TYPE NATRIURETIC PEPTIDE 492 PG/ML (0-125); CALCIUM, SERUM 8.6 mg/dL (8.5-10.1); CARBON DIOXIDE 25 mmol/L (21-32); CHLORIDE 110 mmol/L (98-107); CREATININE 0.6 mg/dL (0.6-1.3); GLUCOSE 96 mg/dL (74-106); MAGNESIUM 1.9 mg/dL (1.8-2.4); PHOSPHORUS 3.8 mg/dL (2.5-4.9); POTASSIUM 3.3 mmol/L (3.5-5.1); SODIUM SERUM 143 mmol/L (136-145); UREA NITROGEN, BLOOD 7 mg/dL (7-18)
[2018-10-23 08:00] VITALS: BP 147/76
[2018-10-23] MEDS: EZETIMIBE 10 MG TABLET PO SCH (08:23)
[2018-10-23] MEDS: LEVOTHYROXINE SODIUM 25 MCG TABLET PO SCH (08:23)
[2018-10-23] MEDS: ATORVASTATIN 40 MG TABLET PO SCH (08:23)
[2018-10-23] MEDS: ATENOLOL 50 MG TABLET PO SCH (08:24)
[2018-10-23] MEDS ORDERED: POTASSIUM CHLORIDE 20 MEQ TAB.PRT.SR PO SCH (09:30)
[2018-10-23] MEDS: DABIGATRAN ETEXILATE MESYLATE 150 MG CAPSULE PO SCH ×2 (09:48→17:42)
[2018-10-23] MEDS: POTASSIUM CHLORIDE 20 MEQ TAB.PRT.SR PO SCH ×3 (10:09→12:00)
[2018-10-23 16:00] VITALS: BP_SYST 145; BP_DIAS 75; BP_DIAS 78
--- NOTE | 2018-10-23 18:45 | NUR ---
MS/RN OPENING NOTE THE PATIENT ALERT AND ORIENTED X4. IN ROOM AIR AND DENIES SOB. RESPIRATION REGULAR AND UNLABORED. DENIES PAIN. THE PATIENT IN STABLE CONDITION. RAC G 20 PATENT AND SALINE LOCKED. BED LOW AND LOCKED. SIDE RAILS UP X3. CALL LIGHT WITHIN REACH. WILL ENDORSE TO SUPERVISOR SLITTING AND SHIPPING.
--- NOTE | 2018-10-23 19:26 | NUR ---
MS/RN OPENING NOTES RECEIVED PATIENT IN BED, AWAKE, ALERT, ABLE TO VERBALIZE NEEDS AND NO PAIN REPORTED OR OBSERVED. CALM AND PARTICIPATIVE TO CARE. SKIN WARM TO TOUCH, RESPIRATIONS EVEN AND UNLABORED, DISCUSSED PLAN OF CARE, PATIENT INFORMED TO CALL FOR ASSISTACNE FOR SAFETY, ABLE TO AMBULATE WITH SUPERVISION. RIGHT AC IV WITH NO S/S OF INFILTRATION. BED LOCKED, CALL LIGHTS WITHIN REACH, WILL MONITOR. RECEIVED ENDORSEMENT FROM AM RN THAT POTASSIUM WAS REPLACED,NEURO CONSULT ORDER AND TO MONITOR FOR ANY CHANGES.
[2018-10-23 20:00] VITALS: BP 123/71
[2018-10-23 20:13] VITALS: BP 123/71
[2018-10-24] MEDS: LEVOTHYROXINE SODIUM 25 MCG TABLET PO SCH (07:05)
--- NOTE | 2018-10-24 07:27 | NUR ---
MS RN OPENING NOTES RECEIVED PATIENT AWAKE IN BED IN NO ACUTE SIGNS OF DISTRESS. A/O X4. VERBALLY RESPONSIVE, DENIES PAIN OR ANY DISCOMFORTS AT THIS TIME. AND CONFUSED. ON ROOM AIR, RESPIRATIONS EVEN AND UNLABORED. IV ACCESS ON RIGHT AC G #20 INTACT AND PATENT. SAFETY MEASURES IN PLACE. BED IN LOW LOCKED POSITION WITH SR UP X2. WILL CONTINUE TO MONITOR PT ACCORDINGLY.
--- NOTE | 2018-10-24 07:33 | NUR ---
11-2/MS/RN NOTES PATIENT ABLE TO SLEEP DURING THE NIGHT, RESPIRATIONS EVEN AND UNLABORED. SKIN WARM TO TOUCH. ABLE TO VERBALZIE NEEDS, MONITORED FOR SAFETY. BED LOCKED, CALL LIGHTS WITHIN REACH, WILL MONITOR.
[2018-10-24 08:00] VITALS: BP 163/73
[2018-10-24] MEDS: ATORVASTATIN 40 MG TABLET PO SCH (08:02)
[2018-10-24] MEDS: ATENOLOL 50 MG TABLET PO SCH (08:03)
[2018-10-24] MEDS: EZETIMIBE 10 MG TABLET PO SCH (08:03)
[2018-10-24 08:41] LABS: CALCIUM, SERUM 9.2 mg/dL (8.5-10.1); CARBON DIOXIDE 28 mmol/L (21-32); CHLORIDE 107 mmol/L (98-107); CREATININE 0.6 mg/dL (0.6-1.3); GLUCOSE 86 mg/dL (74-106); POTASSIUM 4.5 mmol/L (3.5-5.1); SODIUM SERUM 142 mmol/L (136-145); UREA NITROGEN, BLOOD 8 mg/dL (7-18)
[2018-10-24] MEDS: DABIGATRAN ETEXILATE MESYLATE 75 MG CAPSULE PO SCH ×2 (09:08→16:52)
--- NOTE | 2018-10-24 10:26 | NUR ---
RN NOTES ORTHOSTATIC BP CHECKED: LYING 145/75mmHg, SITTING 150/80mmHg and STANDING 155/85mmHg. DR OLIVAS ON UNIT AND MADE AWARE. COZAAR 50MG PO GIVEN ORDERED. WILL CONTINUE TO MONITOR.
[2018-10-24] MEDS: LOSARTAN POTASSIUM 50 MG TABLET PO SCH ×2 (10:39→21:20)
--- NOTE | 2018-10-24 11:11 | NUR ---
RN NOTES PATIENT FOR MRI OF BRAIN W/O CONTRAST TODAY. MRI CHECKLIST DONE AND SIGNED BY PT. CALLED DINKEY ENGINE OPERATOR AND HE SAID THAT HE WILL DO IT TODAY. WILL CONTINUE TO MONITOR.
--- NOTE | 2018-10-24 15:44 | NUR ---
RN NOTES PATIENT WENT EARLIER FOR MRI OF BRAIN W/O CONTRAST VIA WHEELCHAIR AND JUST RETURNED TO UNIT. NO ACUTE DISTRESS NOTED AND NO C/O DIZZINESS VOICED. WILL F/U RESULTS OF MRI AND CONTINUE TO MONITOR PT.
[2018-10-24 16:00] VITALS: BP 150/73
--- NOTE | 2018-10-24 17:33 | NUR ---
RN NOTES PT'S RESULTS OF MRI OF BRAIN W/O CONTRAST CAME IN AND INFORMED CITRUS PICKER INDRA PHOENIX. NO NEW ORDER MADE AT THIS TIME. WILL CONTINUE TO MONITOR.
--- NOTE | 2018-10-24 19:10 | NUR ---
MS RN NOTE RECEIVED PT IN STABLE CONDITION A&O X4, ABLE TO MAKE NEEDS KNOWN. CURRENTLY IN BED WATCHING TV. NO SIGNS OF SOB OR DISTRESS, NO C/O PAIN. IV IN RAC IN PLACE. ALL CURRENT NEEDS MET. BED LOW, LOCKED, UPPER RAILS UP, AND CALL LIGHT WITHIN REACH. WILL CONT. TO MONITOR.
--- NOTE | 2018-10-24 19:14 | NUR ---
MS RN CLOSING NOTES PATIENT IN BED AWAKE AND RESTING AT MODERATE HIGH BACKREST POSITION. A/O X4. ABLE TO MAKE NEEDS AND CONCERNS KNOWN. ON ROOM AIR, TOLERATING WELL WITH NO SOB NOTED. ALL NEEDS AND CARE ATTENDED WELL. IV HL ON RIGHT AC G #20 INTACT AND PATENT, FLUSHED WITH NS AND OPERATIONAL. ALL SAFETY MEASURES KEPT IN PLACE. BED IN LOW LOCKED POSITION WITH SIDE RAILS UP X2. WILL ENDORSE TO DIRECTOR OF PARKS AND RECREATION NURSE FOR HAYES.
[2018-10-24 20:29] VITALS: BP 139/68
--- NOTE | 2018-10-25 06:30 | NUR ---
MS RN NOTE PT IN STABLE CONDITION A&O X4, ABLE TO MAKE NEEDS KNOWN. CURRENTLY IN BED WATCHING TV. NO SIGNS OF SOB OR DISTRESS, NO C/O PAIN. IV IN RAC IN PLACE. ALL CURRENT NEEDS MET. BED LOW, LOCKED, UPPER RAILS UP, AND CALL LIGHT WITHIN REACH. WILL CONT. TO MONITOR AND ENDORSE TO NEXT SHIFT FOR HAYES.
[2018-10-25] MEDS: LEVOTHYROXINE SODIUM 25 MCG TABLET PO SCH (07:36)
[2018-10-25 08:00] VITALS: BP 140/80
[2018-10-25] MEDS: ATORVASTATIN 40 MG TABLET PO SCH (08:53)
[2018-10-25] MEDS: EZETIMIBE 10 MG TABLET PO SCH (08:53)
[2018-10-25] MEDS: LOSARTAN POTASSIUM 50 MG TABLET PO SCH (08:53)
[2018-10-25] MEDS: ATENOLOL 50 MG TABLET PO SCH (08:54)
[2018-10-25] MEDS ORDERED: AMLODIPINE BESYLATE 5 MG TABLET PO SCH (09:00)
[2018-10-25] MEDS: DABIGATRAN ETEXILATE MESYLATE 75 MG CAPSULE PO SCH (09:02)
[2018-10-25] MEDS ORDERED: LOSA50TA3 PO (10:15)
[2018-10-25] MEDS ORDERED: AMLO5TAB9 PO (10:15)
[2018-10-25 12:21] VITALS: BP 140/80
[2018-10-25] MEDS ORDERED: GADODIAMIDE 2.5 MMOL/5 ML VIAL IJ ONE (14:59)
--- NOTE | 2018-10-25 15:00 | NUR ---
PATIENT CLEARED FOR D/C TO HOME BY . PATIENT ALERT AND ORIENTED X4, AMBULATORY, VS ARE STABLE AND ON ROOM AIR TOLERATING WELL. NO S/S DISTRESS NOTED, NO COMPLAIN OF HEADACHE AT THIS TIME. PATIENT RECEIVED D/C INSTRUCTIONS AND EDUCATION; INSTRUCTED TO F/U WITH IN ONE WEEK AND F/U WITH NEURO SURGEON: PATIENT VERBALIZED UNDERSTANDING. MRI CD AND NEW PRESCRIPTION PROVIDED. VALUABLE FORM SIGHED AND ALL BELONGINGS WITH THE PATIENT. IV ASSES REMOVED, ID WRIST REMOVED. PATIENT'S SKIN INTACT. PATIENT REFUSED TO TAKE D/C PICTURES/ PATIENT SAFELY TRANSFERRED TO [facility] VIA WHEELCHAIR AND ACCOMPANIED BY HILLARY CONCEPCION AND PT'S DAUGHTER.
== END 2018-10-25 15:00 | disposition home or self-care (01) | DRG 641 ==
LOC: ER 09:17 → TELE 12:27 → MED 10-23 10:03
PROVIDERS: ADMIT Hospitalist; ATTEND Student in an Organized Health Care Education/Training Program
DX: E86.0 Dehydration (principal); R55 Syncope and collapse; I10 Essential (primary) hypertension; E78.5 Hyperlipidemia, unspecified; E03.9 Hypothyroidism, unspecified; I48.91 Unspecified atrial fibrillation; I50.9 Heart failure, unspecified; I11.0 Hypertensive heart disease with heart failure; Z85.89 Personal history of malignant neoplasm of other organs and systems; E87.6 Hypokalemia; R90.89 Other abnormal findings on diagnostic imaging of central nervous system
CPT/HCPCS: 36415; 70553-TC; 71045-TC; 80048-TC; 80061-TC; 83735-TC; 83880; 84100-TC; 84439-TC; 84443-TC; 84484-TC; 85025-TC; 85652-TC; 87081-TC; 97116-TC; 97530-TC; A9579; G0378; J7030; J7040

== ENCOUNTER 2019-07-06 04:33 | Emergency (ER) | payer MEDICARE, OTHER ==
[~2019-07-06] VITALS: Ht 152.4 cm; Wt 56.7 kg
[~2019-07-06 04:33] MED LIST changes: +AMLO5TAB9 PO; -ATOR40TA PO; -CHOL200026 PO; -EZET10TA14 PO; +EZET10TA16 PO; -LOSA1TAB3 PO; +LOSA50TA3 PO
--- NOTE | 2019-07-06 04:40 | NUR ---
PT BIBF C/O HIGH BLOODPRESSURE, PALPITATIONS SINCE 2299. TOOK AMLODIPINE 5MG @ 2314. PT AAOX4, VSS AT THIS TIME, RR EVEN AND UNLABORED W/ NAD NOTED. -ZIMMERMAN, -NV, -CHEST PAIN. PT CONNECTED TO THE MONITOR AND POX
[2019-07-06 05:03] LABS: BASOPHILS % (AUTO) 0.5 % (0.0-2.0); EOSINOPHILS % (AUTO) 1.3 % (0.0-6.0); HEMATOCRIT 45 % (33-45); HEMOGLOBIN 15.2 g/dL (11.5-14.8); LYMPHOCYTES # (AUTO) 2.7 /CMM (0.8-4.8); LYMPHOCYTES % (AUTO) 41.8 % (20.0-44.0); MEAN CORPUSCULAR HGB CONC 34 g/dl (31.0-36.0); MEAN CORPUSCULAR VOLUME 87 fL (82-100); MONOCYTES # (AUTO) 0.4 /CMM (0.1-1.30); MONOCYTES % (AUTO) 5.5 % (2.0-12.0); NEUTROPHILS # (AUTO) 3.3 /CMM (1.8-8.9); NEUTROPHILS % (AUTO) 50.9 % (43.0-81.0); PLATELET COUNT (AUTO) 162 /CMM (150-450); RED BLOOD CELL COUNT(AUTO) 5.14 MIL/uL (4.0-5.2); WHITE BLOOD COUNT (AUTO) 6.5 K/uL (4.3-11.0)
[2019-07-06 05:14] LABS: CALCIUM, SERUM 9.4 mg/dL (8.5-10.1); CARBON DIOXIDE 29 mmol/L (21-32); CHLORIDE 108 mmol/L (98-107); CREATININE 0.8 mg/dL (0.6-1.3); GLUCOSE 117 mg/dL (74-106); POTASSIUM 3.7 mmol/L (3.5-5.1); SODIUM SERUM 145 mmol/L (136-145); UREA NITROGEN, BLOOD 11 mg/dL (7-18)
[2019-07-06 05:30] VITALS: BP 137/77
== END 2019-07-06 05:57 | disposition home or self-care (01) ==
LOC: ER 04:33
DX: R00.2 Palpitations (principal); R07.89 Other chest pain; I10 Essential (primary) hypertension; I48.91 Unspecified atrial fibrillation; Z98.890 Other specified postprocedural states; Z88.2 Allergy status to sulfonamides; Z88.0 Allergy status to penicillin; Z60.2 Problems related to living alone; Z79.899 Other long term (current) drug therapy
CPT/HCPCS: 36415; 71045-TC; 80048-TC; 84484-TC; 85025-TC

== ENCOUNTER 2019-07-25 15:51 | Inpatient (IN) | payer MEDICARE, OTHER ==
[~2019-07-25] VITALS: Ht 162.6 cm; Wt 56.7 kg
[2019-07-25] MEDS ORDERED: IV NS 0.9% 1,000 ML BAG IV ONE (16:00)
[2019-07-25] MEDS ORDERED: ALBUTEROL FS 2.5 MG/3 ML VIAL.NEB NEB ONE (16:00)
[2019-07-25] MEDS ORDERED: IBUPROFEN 600 MG TABLET PO ONE ×2 (16:00→16:30)
--- NOTE | 2019-07-25 16:10 | NUR ---
FEVER, COUGH AND CONGESTION. SENT BY PMD FOR FURTHER EVAL. PATIENT A/OX4, BREATHING EVEN AND UNLABORED, NO SOB NOTED, NEEDS ATTENDED, CHANGED INTO GOWN.
[2019-07-25 16:23] LABS: BASOPHILS # (AUTO) 0.1 /CMM (0.0-0.2); EOSINOPHILS % (AUTO) 1.4 % (0.0-6.0); HEMATOCRIT 43 % (33-45); HEMOGLOBIN 14.3 g/dL (11.5-14.8); LYMPHOCYTES # (AUTO) 1.4 /CMM (0.8-4.8); LYMPHOCYTES % (AUTO) 21.6 % (20.0-44.0); MEAN CORPUSCULAR HGB CONC 33 g/dl (31.0-36.0); MEAN CORPUSCULAR VOLUME 88 fL (82-100); MONOCYTES # (AUTO) 0.8 /CMM (0.1-1.30); MONOCYTES % (AUTO) 13.4 % (2.0-12.0); NEUTROPHILS % (AUTO) 62.6 % (43.0-81.0); PLATELET COUNT (AUTO) 157 /CMM (150-450); RED BLOOD CELL COUNT(AUTO) 4.93 MIL/uL (4.0-5.2); WHITE BLOOD COUNT (AUTO) 6.3 K/uL (4.3-11.0)
[2019-07-25 16:35] LABS: APPEARANCE,URINE Clear (CLEAR); BILIRUBIN,URINE Negative (NEGATIVE); BLOOD, URINE Large Ery/uL (NEGATIVE); COLOR,URINE Yellow (YELLOW); KETONES,URINE Negative (NEGATIVE); LEUKOCYTE ESTERASE ,URINE Negative (NEGATIVE); NITRITE, URINE Negative (NEGATIVE); PH,URINE 5.5 (5.0-8.0); PROTEIN,URINE Negative (NEGATIVE); UGLUCOSE Negative (NEGATIVE); UROBILINOGEN,URINE 0.2 EU/dL (0.2)
[2019-07-25 16:35] LABS: CALCIUM, SERUM 9.1 mg/dL (8.5-10.1); CREATININE 0.8 mg/dL (0.6-1.3); POTASSIUM 3.8 mmol/L (3.5-5.1)
[2019-07-25 16:41] LABS: ALBUMIN 3.9 g/dL (3.4-5.0); BILIRUBIN,DIRECT 0.2 mg/dL (0.0-0.2); BILIRUBIN,TOTAL 0.6 mg/dL (0.2-1.0); TOTAL PROTEIN, SERUM 7.6 g/dL (6.4-8.2)
[2019-07-25] MEDS ORDERED: ALBUTEROL FS 2.5 MG/3 ML VIAL.NEB ONE (16:42)
[2019-07-25 16:44] LABS: RBC,URINE 21-50 /HPF (0-2)
[2019-07-25 16:45] LABS: BACTERIA,URINE Few /HPF (None Seen); SQUAMOUS EPITHELIAL CELL,UR Few /HPF (None Seen); WBC,URINE NONE SEEN /HPF (0-3)
--- NOTE | 2019-07-25 16:46 | NUR ---
CALLED [facility], SHAUND BOB
--- NOTE | 2019-07-25 17:02 | NUR ---
CALLED NURSING SUP FOR TELE BED
--- NOTE | 2019-07-25 17:27 | NUR ---
REPORT GIVEN TO KARUNA BERNAL.
[2019-07-25] MEDS ORDERED: Z GUARD REMEDY 2 OZ OINT TP PRN (18:30)
[2019-07-25] MEDS ORDERED: ACETAMINOPHEN 325 MG TABLET PO PRN (18:30)
[2019-07-25] MEDS ORDERED: ONDANSETRON HCL/PF 4 MG/2 ML VIAL IVP PRN (18:30)
--- NOTE | 2019-07-25 18:30 | NUR ---
RN TELE1 PATIENT RECIVED ON [place]. PATIENT A/O X4 COOPERATIVE. PATIENT IS ON EXTERNAL MONITOR 90'S SR. PATIENT COMPLAINS OF SOB, NO ACUTE RESPIRATORY DISTRESS .PATIENT SKIN IS INTACT. PATIENT HAS R 18G AC. NO SIGNS OF INFILTRATION, BED LOCKED AND LOWEST POSITION CALL LIGHTWITH INREACH ALL SAFETY MEASURE IMPLEMENTED PER HOSPITAL POLICY
--- NOTE | 2019-07-25 18:31 | NUR ---
PATIENT A/OX4, TRANSFERRED TO ROOM 112-1 VIA ACLS PROTOCOL. NO DISTRESS NOTED. ENDORSED TO KARUNA BERNAL.
[2019-07-25] MEDS ORDERED: ATENOLOL 50 MG TABLET PO SCH (19:30)
[2019-07-25] MEDS: LEVOFLOXACIN 750 MG /D5W 150ML 750 MG in PREMIX 1 EA IV SCH (19:34)
--- NOTE | 2019-07-25 19:34 | NUR ---
RN OPENING NOTE PATIENT AWAKE, A/O X4. PATIENT IS ON MONITOR CURRENTLY SR 92. PT IN NO RESPIRATORY DISTRESS OR PAIN. IV 20 GAUGE TO RIGHT AC PATENT AND INTACT. BED LOCKED AND LOWEST POSITION CALL LIGHT WITH IN REACH WILL CONTINUE TO MONITOR PT
[2019-07-25] MEDS: IV NS 0.9% 1,000 ML IV PRN (19:35)
[2019-07-25 20:00] VITALS: BP 127/56
[2019-07-25] MEDS: DABIGATRAN ETEXILATE MESYLATE 150 MG CAPSULE PO SCH (20:35)
[2019-07-26] VITALS: BP 122/65
[2019-07-26 04:00] VITALS: BP 100/50
[2019-07-26 06:43] LABS: BASOPHILS % (AUTO) 0.4 % (0.0-2.0); EOSINOPHILS % (AUTO) 0.2 % (0.0-6.0); HEMATOCRIT 39 % (33-45); LYMPHOCYTES # (AUTO) 1.4 /CMM (0.8-4.8); LYMPHOCYTES % (AUTO) 27.8 % (20.0-44.0); MEAN CORPUSCULAR HGB CONC 34 g/dl (31.0-36.0); MEAN CORPUSCULAR VOLUME 87 fL (82-100); MONOCYTES # (AUTO) 0.9 /CMM (0.1-1.30); NEUTROPHILS # (AUTO) 2.8 /CMM (1.8-8.9); NEUTROPHILS % (AUTO) 54.6 % (43.0-81.0); PLATELET COUNT (AUTO) 133 /CMM (150-450); RED BLOOD CELL COUNT(AUTO) 4.47 MIL/uL (4.0-5.2); WHITE BLOOD COUNT (AUTO) 5.2 K/uL (4.3-11.0)
--- NOTE | 2019-07-26 07:07 | NUR ---
RN CLOSING NOTE PATIENT AWAKE, A/O X4. PATIENT ION MONITOR CURRENTLY SR 86. PT IN NO RESPIRATORY DISTRESS OR PAIN. ON 2 LITERS VIA NC, IV 20 GAUGE TO RIGHT AC PATENT AND INTACT NS INFUSING AT 75 ML/HR. BED LOCKED AND LOWEST POSITION CALL LIGHT WITH IN REACH WILL ENDORSE TO AM NURSE FOR HAYES
[2019-07-26 07:24] LABS: BILIRUBIN,TOTAL 0.5 mg/dL (0.2-1.0); CALCIUM, SERUM 8.3 mg/dL (8.5-10.1); CREATININE 0.9 mg/dL (0.6-1.3); MAGNESIUM 2.1 mg/dL (1.8-2.4); PHOSPHORUS 3.8 mg/dL (2.5-4.9); POTASSIUM 3.4 mmol/L (3.5-5.1); TOTAL PROTEIN, SERUM 6.1 g/dL (6.4-8.2)
[2019-07-26] MEDS: LEVOTHYROXINE SODIUM 25 MCG TABLET PO SCH (07:25)
[2019-07-26 08:00] VITALS: BP 117/70
[2019-07-26] MEDS: AMLODIPINE BESYLATE 5 MG TABLET PO SCH (09:00)
[2019-07-26] MEDS: DABIGATRAN ETEXILATE MESYLATE 150 MG CAPSULE PO SCH ×2 (09:01→18:22)
[2019-07-26] MEDS: ATORVASTATIN 40 MG TABLET PO SCH (09:02)
[2019-07-26] MEDS: EZETIMIBE 10 MG TABLET PO SCH (09:02)
[2019-07-26] MEDS: ATENOLOL 25 MG TABLET PO SCH ×2 (09:02→18:23)
[2019-07-26] MEDS ORDERED: POTASSIUM CHLORIDE 20 MEQ TAB.PRT.SR PO SCH (10:00)
[2019-07-26] MEDS: BUDESONIDE RESPULE INH 0.25 MG/2 ML AMPUL.NEB NEB SCH ×3 (10:30→19:51)
[2019-07-26] MEDS ORDERED: LEVALBUTEROL HCL NEB 1.25 MG/0.5 ML VIAL.NEB IH SCH (10:30)
[2019-07-26] MEDS: LEVALBUTEROL HCL NEB 1.25 MG/0.5 ML VIAL.NEB IH SCH ×3 (11:20→23:30)
--- NOTE | 2019-07-26 12:51 | NUR ---
INFLUENZA SWABS TO LAB.PT. WITH LOOSE COUGH.
[2019-07-26] MEDS: IV NS 0.9% 1,000 ML IV PRN (12:58)
[2019-07-26] MEDS: IPRATROPIUM NEB FS 0.5 MG/2.5 ML AMPUL.NEB NEB SCH ×2 (14:32→19:51)
[2019-07-26 16:00] VITALS: BP 151/70
--- NOTE | 2019-07-26 18:00 | NUR ---
dr. alva and dr. johnson in to see pt. orders given.
--- NOTE | 2019-07-26 19:00 | NUR ---
RECIEVED ALERT AND ORIENTATED. SMILING. UNDERSTANDS SHE MUST CALL WHEN NEED TO GO TO THE BATHROOM FOR SAFETY. REVIEWED THE CALL LIGHT WITH HER. NO COUGHING OR SOB NOTED O2 ON N/C
[2019-07-26] MEDS: LEVOFLOXACIN 750 MG /D5W 150ML 750 MG in PREMIX 1 EA IV SCH (19:10)
[2019-07-26 22:57] VITALS: BP 123/60
[2019-07-27] MEDS: IPRATROPIUM NEB FS 0.5 MG/2.5 ML AMPUL.NEB NEB SCH ×2 (01:30→07:31)
[2019-07-27 04:00] VITALS: BP 148/75
--- NOTE | 2019-07-27 05:54 | NUR ---
ENDING NOTES: SLERT AND ORIENTATED. AMBULATES WITH NURSE STANDBY ASSIST. SKIN INTACT. NO COUGHING NO SOB THIS 12 HOURS WEARING 02 SATS 94 -96% NOTED SHE FAILS TO CALL FOR ASSISTE WHEN NEED TO GO TO THE BATHROOM, FREQ CHECKS AT THE BEDSIDE WERE MADE.
[2019-07-27 06:38] LABS: CALCIUM, SERUM 8.5 mg/dL (8.5-10.1); CREATININE 0.7 mg/dL (0.6-1.3); POTASSIUM 3.6 mmol/L (3.5-5.1)
--- NOTE | 2019-07-27 07:00 | NUR ---
RN NOTES RECEIVED PT ON BED ,A/Oxx3, RESPIRATION EVEN AND UNLABORED, NO DISTRESS NOTED,NS AT 75CC/HR RUNNING VIA R AC IV SITE G 18 , SITE CLEAN, DRY AND INTACT, ADVISED PT TO CALL NEED FOR ASSIST , PT VERBALIZES UNDERSTANDING , SR UP x3,CALL LIGHT WITHIN EASY REACH ,BED LOCKED AND IN LOWEST POSITION, CONTINUE TO MONITOR
[2019-07-27] MEDS: LEVALBUTEROL HCL NEB 1.25 MG/0.5 ML VIAL.NEB IH SCH (07:30)
[2019-07-27] MEDS: BUDESONIDE RESPULE INH 0.25 MG/2 ML AMPUL.NEB NEB SCH (07:30)
--- NOTE | 2019-07-27 07:31 | NUR ---
PT REFUSED RESP TX ATT. NO S/S OF SOB NOTED Addendum: 07/27/19 at 0731 by JEEVAN WELCH RT Amended: Links added.
[2019-07-27] MEDS: IV NS 0.9% 1,000 ML IV PRN (07:42)
[2019-07-27] MEDS: LEVOTHYROXINE SODIUM 25 MCG TABLET PO SCH (07:42)
[2019-07-27 08:00] VITALS: BP 124/69
[2019-07-27] MEDS: ATORVASTATIN 40 MG TABLET PO SCH (08:32)
[2019-07-27] MEDS: EZETIMIBE 10 MG TABLET PO SCH (08:32)
[2019-07-27] MEDS: ATENOLOL 25 MG TABLET PO SCH (08:33)
[2019-07-27] MEDS: AMLODIPINE BESYLATE 5 MG TABLET PO SCH ×2 (08:33→08:52)
[2019-07-27] MEDS: DABIGATRAN ETEXILATE MESYLATE 150 MG CAPSULE PO SCH (08:36)
[2019-07-27 08:52] VITALS: BP 124/69
[2019-07-27] MEDS: ASPIRIN 81 MG TAB.CHEW PO SCH ×2 (10:00→10:35)
[2019-07-27] MEDS ORDERED: LEVO750T46 PO (10:47)
--- NOTE | 2019-07-27 12:00 | NUR ---
RN NOTES DISCHARGE INSTRUCTION GIVEN TO PT , PT VERBALIZES UNDERSTANDING, ALL HER QUESTIONS ANSWERED , O2 SAT ON RA 94%, VSS STABLE, IV SITE D/BARRY, PT WAITING FOR HER FAMILY TO PICK HER UP . ADVISED PT TO CALL STAFF WHEN HER FAMILY ARRIVE TO PICC HER UP .
--- NOTE | 2019-07-27 12:15 | NUR ---
RN NOTES PT STATED WANTS TO EAT LUNCH BEFORE GOING HOME .
--- NOTE | 2019-07-27 12:20 | NUR ---
RN NOTES PT SITTING UP ON A CHAIR EATING LUNCH , VSS STABLE, WAITING FOR HR FAMILY TO TAKE HER HOME . VSS STABLE ,
--- NOTE | 2019-07-27 12:53 | NUR ---
RN NOTES UPON ARRIVAL TO THE ROOM , UNABLE TO FIND THE PT , PT LEFT THE FLOOR TO HOME WITHOUT NOTIFYING THE STAFF MEMBER.
--- NOTE | 2019-07-27 13:08 | NUR ---
RN NOTES CALL MADE TO PT'S DAUGHTER ,HARDIK , SHE STATED THAT HER MOTHER IS AT HOME WITH HER AND SHE IS FINE.
== END 2019-07-27 12:35 | disposition home or self-care (01) | DRG 202 ==
LOC: ER 16:00 → TELE1 17:47 → MEDSG1 07-26 14:42
PROVIDERS: ADMIT Internal Medicine; ATTEND Internal Medicine
DX: J21.9 Acute bronchiolitis, unspecified (principal); I21.A1 Myocardial infarction type 2; I31.3 Pericardial effusion (noninflammatory); I48.91 Unspecified atrial fibrillation; E78.5 Hyperlipidemia, unspecified; I10 Essential (primary) hypertension; E03.9 Hypothyroidism, unspecified; Z79.01 Long term (current) use of anticoagulants
CPT/HCPCS: 36415; 71045-TC; 71250-TC; 80048-TC; 80053-TC; 80061-TC; 80076-TC; 81000-TC; 83690-TC; 83735-TC; 83880; 84100-TC; 84484-TC; 85025-TC; 85730-TC; 87040-TC; 87070-TC; 87081-TC; 87086-TC; 93307-TC; A4216; G0378; J1956; J7030

== ENCOUNTER 2022-02-24 17:47 | Emergency (ER) | payer MEDICARE, OTHER ==
[~2022-02-24] VITALS: Ht 152.4 cm; Wt 53.1 kg
[~2022-02-24 17:47] MED LIST changes: +AMLO-212 PO; -AMLO5TAB9 PO; +LEVO750T46 PO; -LOSA1TAB36 PO; -LOSA50TA3 PO
--- NOTE | 2022-02-24 18:17 | NUR ---
C/O SOB AND HEADACHE SINCE 1629 THIS AFTERNOON. PT A&OX4, ABLE TO AMBULATE W/O ASSISTANCE. FAMILY AT BEDSIDE.
--- NOTE | 2022-02-24 19:14 | NUR ---
REPORT GIVEN TO DOLORES DIAL. ALL QUESTIONS ANSWERED
--- NOTE | 2022-02-24 19:15 | NUR ---
RECEIVED REPORT FROM DOLORES MACIEL. PATIENT CAME WITH CC OF SOB AND HEADACHE. RECEIVED PATIENT WITH IV CANNULA G22 ON LEFT FA, LINE IS FLUSHED AND PATIENT.
--- NOTE | 2022-02-24 19:27 | NUR ---
COVID SWAB DONE AND SENT TO LAB
[2022-02-24 19:51] LABS: CALCIUM, SERUM 9.2 mg/dL (8.5-10.1); CARBON DIOXIDE 28 mmol/L (21-32); CHLORIDE 104 mmol/L (98-107); CREATININE 0.5 mg/dL (0.6-1.3); GLUCOSE 100 mg/dL (74-106); POTASSIUM 5.6 mmol/L (3.5-5.1); SODIUM SERUM 140 mmol/L (136-145); UREA NITROGEN, BLOOD 12 mg/dL (7-18)
[2022-02-24 20:00] LABS: BASOPHILS % (AUTO) 0.3 % (0.0-2.0); EOSINOPHILS % (AUTO) 0.5 % (0.0-6.0); HEMATOCRIT 44 % (33-45); HEMOGLOBIN 14.8 g/dL (11.5-14.8); LYMPHOCYTES # (AUTO) 2.3 K/uL (0.8-4.8); LYMPHOCYTES % (AUTO) 29.3 % (20.0-44.0); MEAN CORPUSCULAR HGB CONC 34 g/dl (31.0-36.0); MEAN CORPUSCULAR VOLUME 86 fL (82-100); MONOCYTES # (AUTO) 0.6 K/uL (0.1-1.30); MONOCYTES % (AUTO) 7.3 % (2.0-12.0); NEUTROPHILS % (AUTO) 62.6 % (43.0-81.0); PLATELET COUNT (AUTO) 117 K/uL (150-450); RED BLOOD CELL COUNT(AUTO) 5.12 MIL/uL (4.0-5.2); WHITE BLOOD COUNT (AUTO) 7.9 K/uL (4.3-11.0)
--- NOTE | 2022-02-24 22:13 | NUR ---
IV CANNULA REMOVED
--- NOTE | 2022-02-24 22:13 | NUR ---
Patient discharged to home in stable condition. Written and verbal after care instructions given. Patient verbalizes understanding of instruction.
[2022-02-24 22:14] VITALS: BP 137/72
== END 2022-02-24 22:14 | disposition home or self-care (01) ==
LOC: ER 17:49
DX: R53.1 Weakness (principal); I48.91 Unspecified atrial fibrillation; Z79.01 Long term (current) use of anticoagulants; E78.5 Hyperlipidemia, unspecified; I10 Essential (primary) hypertension; Z20.822 Contact with and (suspected) exposure to COVID-19; Z85.43 Personal history of malignant neoplasm of ovary; Z88.0 Allergy status to penicillin; Z88.2 Allergy status to sulfonamides
CPT/HCPCS: 36415; 71045-TC; 80048-TC; 83880; 84484-TC; 85025-TC; 87081-TC; C9803